=== PATIENT | female | born 1960 | race Caucasian/White ===

== ENCOUNTER → 2017-05-20 | Outpatient (CLI) | payer OTHER ==
[~2017-05-20] VITALS: Ht 161.3 cm; Wt 129.2 kg
[~2017-05-20] MED LIST: Cozaar PO; Ecotrin PO; Feosol PO; Klor-Con M20 PO; Lasix PO; MUCINEX DM ER1 EACH PO; PROAIR HFA8.5 GM IH; Percocet 5/325,Endoc PO; Relafen PO; SYMBICORT60 INHALA1 IH; Senokot S,Pericolace PO; celeXA PO
== END | disposition home or self-care (01) ==
LOC: AMB 11:14
PROC: 0DBL8ZZ Excision of Transverse Colon, Via Natural or Artificial Opening Endoscopic (ICD-10-PCS; principal; 2017-05-20)
DX: Z12.11 Encounter for screening for malignant neoplasm of colon (principal); D12.3 Benign neoplasm of transverse colon; M19.90 Unspecified osteoarthritis, unspecified site; J45.909 Unspecified asthma, uncomplicated; R73.09 Other abnormal glucose; I10 Essential (primary) hypertension; E66.01 Morbid (severe) obesity due to excess calories; Z68.43 Body mass index [BMI] 50.0-59.9, adult; E55.9 Vitamin D deficiency, unspecified; Z90.710 Acquired absence of both cervix and uterus; Z80.3 Family history of malignant neoplasm of breast; Z82.49 Family history of ischemic heart disease and other diseases of the circulatory system; Z83.49 Family history of other endocrine, nutritional and metabolic diseases; Z80.8 Family history of malignant neoplasm of other organs or systems
CPT/HCPCS: 88305; J2250